=== PATIENT | female | born 1985 | race Two or more races ===

== ENCOUNTER → 2016-10-31 | Outpatient (CLI) | payer OTHER ==
[~2016-10-31] MED LIST: AMOXICILLIN875 MG PO; AZITHROMYCIN250 MG PO; KEPPRA500 M2 PO; LIDOCAINE VISCOU1 ML PO; LORTAB ELIXIR480 ML PO; PHENERGAN25 M1 PR; VOLTAREN50 MG PO; ZOFRAN PO
--- NOTE | ~2016-10-31 | CR173 ---
[facility] A Service of [facility] & [facility] RADIOLOGY TEXT RESULTS PATIENT: ZULY OSMAN LOCATION: [facility] : [birth year] UNIT #: [id number] AGE: [address]: STAN LIRA SEX: F ORDER DR: [id number] [facility] [address] [place], [place] [address] [id number] MR#: [id number] Acc #: [id number] NAME: ZLUY OSMAN : 1985 SEX: F STUDY DATE/TIME: 10/31/2016 9:02 UNIT: [facility] ROOM: STUDY DESCRIPTION: CR Knee 3 Views Rt Attending Physician: Brittney Colon Referring Physician: Brittney Colon Ordering Physician: Brittney Colon Primary Care Physician: Clair Méndez M.D. MEDICAL IMAGING REPORT This report is preliminary unless electronic signature is present EXAM Right knee, 10/31/2016. HISTORY Right frontal knee pain for 1 month. No trauma. FINDINGS 3 views of the right knee were obtained. There is no fracture or malalignment. There is no joint effusion. There is no significant spurring. IMPRESSION Normal right knee. Dictated by... Piter Fuentes Jr., M.D. THIS IS AN ELECTRONICALLY VERIFIED REPORT Piter Fuentes Jr., M.D. at 10/31/2016 2:48 PM [place]/christina TD: 10/31/2016 12:00 JOB #: [id number] MEDICAL IMAGING REPORT Page 1 of 1 COPY
== END | disposition home or self-care (01) ==
LOC: CRAD 08:50
DX: M25.561 Pain in right knee (principal)
CPT/HCPCS: 73562

== ENCOUNTER 2017-03-18 09:37 | Emergency (ER) | payer OTHER ==
[2017-03-18 10:40] LABS: BASOPHIL# 0.1 X10e3 (0-0.3); BASOPHIL% 0.7 % (0-2.5); EOSINOPHIL# 0.4 X10e3 (0-0.7); EOSINOPHIL% 3.7 % (0.0-7.0); HEMATOCRIT 41.5 % (35.0-45.0); HEMOGLOBIN 13.2 gm/dL (12.0-16.0); LYMPHOCYTE# 2.9 X10e3 (1.0-3.5); LYMPHOCYTE% 26.5 % (17.0-45.0); MEAN CELL VOLUME 72.2 FL (83-96); MEAN CORPUSCULAR HEMOGLOBIN 22.9 PG (28-34); MEAN CORPUSCULAR HGB CONC 31.8 g/dL (30-36); MEAN PLATELET VOLUME 8.9 FL (6.5-11.5); MONOCYTE# 0.4 X10e3 (0-1.0); MONOCYTE% 4.1 % (3.0-12.0); NEUTROPHIL# 7.1 X10e3 (1.5-7.1); PLATELET COUNT 214 X10e3 (140-420); RED BLOOD COUNT 5.75 X10e (3.90-5.30); RED CELL DISTRIBUTION WIDTH 14.6 % (11.0-15.5); WHITE BLOOD COUNT 10.9 X10e3 (4.0-10.5)
[2017-03-18 10:44] LABS: DIFF IND NO
[2017-03-18 11:03] LABS: URINE SOURCE CLEAN CATCH
[2017-03-18 11:06] LABS: BUN/CREATININE RATIO 12.85; CALCIUM SERUM 9.1 mg/dL (8.4-10.2); CREATININE SERUM 0.7 mg/dL (0.6-1.4); GLOM FILT RATE Estimated 115.5 mL/min (>60)
[2017-03-18 11:08] LABS: URINE APPEARANCE CLEAR; URINE BILIRUBIN NEG (NEG); URINE BLOOD NEG (NEG); URINE COLOR YELLOW; URINE GLUCOSE NEG (NEG); URINE KETONE TRACE (NEG); URINE LEUKOCYTE ESTERASE NEG (NEG); URINE NITRATE NEG (NEG); URINE PH 5.5 (5-8); URINE PROTEIN 1+ (NEG); URINE SPECIFIC GRAVITY 1.018 (1.003-1.035); URINE UROBILINOGEN 0.2 MG/DL (NEG)
[2017-03-18 11:10] LABS: URINE BACTERIA AUWI NEG (NEGATIVE); URINE SQUAMOUS EPITHELIAL CELL NONE SEEN /[HPF]; UWBCS1 AUWI 0-2 (0-5)
[2017-03-18 11:17] LABS: CULTURE INDICATED? NO
== END 2017-03-18 12:23 | disposition home or self-care (01) ==
LOC: CED 09:37
PROVIDERS: Emergency Medicine
DX: G40.909 Epilepsy, unspecified, not intractable, without status epilepticus (principal)
CPT/HCPCS: 36415; 80048; 81003; 82947; 84703; 85025; 96365; 99284; J1953

== ENCOUNTER 2017-04-04 23:54 | Inpatient (IN) | payer OTHER ==
[~2017-04-04] VITALS: Ht 157.5 cm; Wt 98.0 kg
--- NOTE | ~2017-04-04 | CO ---
Unit #: [id number] #: [id number] Patient: ZULY OSMAN [id number] [facility] [address] [place], [place] [address] [id number] Willis MR#: [id number] NAME: ZULY OSMAN [facility]: [facility] Age: 32 Sex: F Admission Date: 04/05/2017 : 1985 Attending Physician: Clair Méndez M.D. Primary Care Physician: Clair Méndez M.D. Consultation Date: 04/05/2017 CONSULTATION REPORT REASON FOR CONSULTATION 1. Possible hypoxic-anoxic encephalopathy. 2. History of seizure disorder. PATIENT IDENTIFICATION This is a 32-year-old, Czech female, who is evaluated from ICU 21 at [facility]. SOURCE OF INFORMATION Some medical records and my discussions with ER MD. PROBLEM LIST Looking at her history and medication, 1. History of seizure disorder. She sees Dr. Kwong. 2. Obstructive sleep apnea. 3. Obesity. 4. Allergies. 5. Now, respiratory failure. 6. Also, she has pulseless electrical activity. 7. Detailed records at present, not available. HISTORY OF PRESENT ILLNESS This is a 32-year-old female, who apparently has history of seizure disorder. I saw some CT scan results and other tests that have been ordered by Dr. Kwong since 2014. It looks like she sees Dr. Kwong and is on Keppra and looks like 1000 mg twice daily and one concern is that she was going for holistic approach and not taking the medication, but I did see her bottle and it was filled with levetiracetam 1000 mg twice daily on the forth and has eight tablets remaining, so which will be appropriate, so really we do not know. Her is not here. Her children are young, but apparently she went to sleep fine, though, she has been having some headaches lately. She uses a CPAP, so she put the machine on and her children then noticed that she was shaking and she was not waking up, so they called the EMS. EMS arrived at the scene and she was in pulseless electrical activity. Please refer to all workup done after that. She was brought in around 11:54 p.m. then, she arrested again. She was already intubated. She had CPR done again and that has been the situation. Nobody witnessed the seizure like activity. Her temperature was up. Her labs did not show anything else otherwise, now she is running a temperature of 102 plus. Her heart rate was anywhere from 92 to 152. Blood pressure initially was 160/112 and then 180/114, now she is 120/81. She has no sedation, but she is not purposeful, she is more shaking. It is not rhythmic seizure-like activity. There are no eye movement. Her Unit #: [id number] #: [id number] Patient: ZULY OSMAN pupils are about 2 mm, essentially nonreactive. No corneals. No doll eyes and she has no sedation. Her labs showed decreased pH of 7.18. Random glucose was 318. AST was 170 and ALT was 128. Alcohol level 5 ?. White count was 25.4, RBC count was 5.44, hemoglobin and hematocrit of 12.2 and 40.7, and platelet count was 260. Urine drug screen was negative. Urinalysis showed nothing major. Head CT showed lack of wells and white, which could be motion, but concerning for hypoxic and anoxic injury. Her seizure frequency apparently has increased lately. Previously reportedly, she would have 1 to 2 seizure, but now much more, but again, this is information from her adolescent children and I do not have anybody else to inform me. All the information was gathered via her sister and brother and we do not have any medical records available and obviously I am not sure if we can gather anything from Dr. Kwong. PAST MEDICAL HISTORY As discussed above. PAST SURGICAL HISTORY Apparently, a . ALLERGIES None known to us. HOME MEDICATIONS 1. Tizanidine. 2. Keppra 500 mg twice daily. 3. Claritin/generic. FAMILY HISTORY No seizure reported. SOCIAL HISTORY Apparently, she is . She lives with her and three children I believe. There is nothing suggesting tobacco, alcohol, or drug use known to us. REVIEW OF SYSTEMS Review of systems could not be obtained because of her present coma state. PHYSICAL EXAMINATION VITAL SIGNS: Temperature 98.3, pulse 98, respirations are 24, blood pressure is 120/81, and O2 saturations 100%. Weight of 214 pounds. BMI was 39. NEUROLOGIC: The patient at present is in coma. She is not sedated. She is not following commands. Her Lucien coma Scale at present, I gave her a score of 3/15. Intubated. She has some spontaneous shaking-type activity, rigors like activity, which could be secondary to her seizures. Cranial nerve examination demonstrate no corneals. No doll eyes. Pupils, about 2 mm, nonreactive. No dysconjugate seen. I did not see any ptosis. I did not see any nystagmus. I did not see any rolling eye movements. I did not see any facial asymmetry. No response to facial stimuli. Hearing is questionable. Tongue was midline. I could not visualize her oropharynx or uvula. No head turning was seen otherwise. Unit #: [id number] #: [id number] Patient: ZULY OSMAN Motor examination demonstrated normal bulk and tone. She is having some shivering and rigor type of activity. Her temperature is 102+ plus. No purposeful movement, otherwise that I could elicit. Sensory examination, no responses of any kind. I could not get any reflexes. Toes are mute. Gait and coordination could not be evaluated. DIAGNOSTIC STUDIES Labs and imaging are reviewed and as discussed in the history of present illness. IMPRESSION This is a 32-year-old female, who has history of seizures, but apparently she was in pulseless electrical activity, whether it was a prolonged seizure and she ended up becoming hypoxic and anoxic injury. Whether this was a cardiac event that caused this, we do not know. She is acting like hypoxic ischemic encephalopathy. We will give her full support. Because of her history of seizure disorder, I will continue Bita Lang and I am going to do Cerebyx also. Supportive care. Discussed with the family. Airway breathing and circulation and full support looking at her liver function tests and others. I am concerned that damage may be there, but her being young and otherwise not in bad physical health, we may have some hope and I will continue that and we will see how things go. Continue with three antiepileptics and will use Versed if any seizure-like activity and go from there. I talked to the family. Her is not here and I will follow her while she is here and I am concerned about very poor prognostic picture, but we will continue everything as at present. Dictated by... Kem Velazquez M.D. MELANY/caren TD: 04/06/2017 05:56 JOB #: [id number] CONSULTATION REPORT Page 1 of 1 X Kem Velazquez MD CONSULTATION REPORT
--- NOTE | ~2017-04-04 | CR72 ---
[facility] A Service of [facility] & [facility] RADIOLOGY TEXT RESULTS PATIENT: ZULY OSMAN LOCATION: [address] : [birth year] UNIT #: [id number] AGE: [address]: Harleen Ramos MD SEX: F ORDER DR: [id number] [facility] [address] [place], [place] [address] [id number] I MR#: [id number] Acc #: [id number] NAME: ZULY OSMAN : 1985 SEX: F STUDY DATE/TIME: 04/05/2017 1:27 UNIT: [facility] ROOM: [facility] STUDY DESCRIPTION: CR Chest Single View Portable Attending Physician: Harleen Ramos M.D. Ordering Physician: Jamel Emmanule M.D. Primary Care Physician: Clair Méndez M.D. MEDICAL IMAGING REPORT This report is preliminary unless electronic signature is present EXAM Portable chest. INDICATIONS Central line placement. Shortness of air today. PROCEDURE Frontal view chest. COMPARISON 09/02/2013 FINDINGS ET tube is 1.5 cm above the yanique. There is a right IJ catheter in the proximal SVC. No pneumothorax or dense consolidation. IMPRESSION 1. ET tube 1.5 cm above the yanique. 2. Right IJ approach catheter in the proximal SVC. No pneumothorax. Dictated by... Iker Robles M.D. THIS IS AN ELECTRONICALLY VERIFIED REPORT Iker Robles M.D. at 04/05/2017 10:03 PM AARON/neha TD: 04/05/2017 19:47 JOB #: [id number] MEDICAL IMAGING REPORT Page 1 of 1 COPY
--- NOTE | ~2017-04-04 | EE ---
Unit #: [id number] #: [id number] Patient: ZULY OSMAN [id number] [address] [address] [id number] I MR#: [id number] NAME: ZULY OSMAN : 1985 SEX: F STUDY DATE/TIME: 04/06/2017 UNIT: [facility] ROOM: [facility] STUDY DESCRIPTION: EEG Attending Physician: Clair Méndez M.D. Referring Physician: Kem Velazquez M.D. Primary Care Physician: Clair Méndez M.D. NEURODIAGNOSTICS REPORT EXAM EEG REASON FOR THE STUDY History of seizure, decreased level of consciousness and unresponsiveness. 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 EEG DESCRIPTION This is an inpatient, portable, digitally recorded multi-montage adult EEG with leads placed according to the International 10-20 System. Hyperventilation and photic stimulation was not done. This EEG shows very decreased amplitude and very slow EEG with some breathing artifact and irregular burst suppression type pattern also. I believe it may be a combination of both. I checked the patient when the EEG was being done and I discussed it with the staff. The breathing is at 17-22 per minute and similarly there may be burst of activity every 3 to sometimes 5-6 seconds. No reactivity was seen but the most important thing is there is nothing suggestive of seizure, nothing suggesting status. No interictal discharges. Decreased amplitude slow, nonreactive EEG. IMPRESSION This is an abnormal EEG which is essentially in coma state. No reactivity was seen but nothing suggesting seizure or status. Burst suppression versus breathing artifact and both of them would suggest, with otherwise not much activity, a poor prognostic picture. Clinical correlation is recommended. Dictated by... Marge Leal/jay TD: 04/07/2017 12:33 JOB #: [id number] Unit #: [id number] #: [id number] Patient: ZULY OSMAN NEURODIAGNOSTICS REPORT Page 1 of 1 X Kem Velazquez MD NEURODIAGNOSTICS REPORT
--- NOTE | ~2017-04-04 | CR72 ---
[facility] A Service of [facility] & [facility] RADIOLOGY TEXT RESULTS PATIENT: ZULY OSMAN LOCATION: [address] : [birth year] UNIT #: [id number] AGE: [address]: Clair Méndez MD SEX: F ORDER DR: [id number] [facility] [address] [place], [place] [address] [id number] I MR#: [id number] Acc #: [id number] NAME: ZULY OSMAN : 1985 SEX: F STUDY DATE/TIME: 04/06/2017 5:16 UNIT: [facility] ROOM: [facility] STUDY DESCRIPTION: CR Chest Single View Portable Attending Physician: Clair Méndez M.D. Ordering Physician: Lynn Richmond M.D. Primary Care Physician: Clair Méndez M.D. MEDICAL IMAGING REPORT This report is preliminary unless electronic signature is present EXAM Portable chest INDICATIONS Cardiac arrest followup. Respiratory failure today. PROCEDURE Frontal view chest COMPARISON 04/05/2017 FINDINGS ET tube stable; heart size unchanged. No new dense consolidation, visible pleural fluid or pneumothorax. IMPRESSION Stable Dictated by... Iker Robles M.D. THIS IS AN ELECTRONICALLY VERIFIED REPORT Iker Robles M.D. at 04/07/2017 10:04 PM EED/to TD: 04/06/2017 14:26 JOB #: [id number] MEDICAL IMAGING REPORT Page 1 of 1 COPY
--- NOTE | ~2017-04-04 | FU ---
[facility] Nutrition Therapy DATE: 04/08/17 Patient: ZULY OSMAN Physician: MORCAR Address: [address] [place] [address] Room/Bed: [address], Zip: [place] [address] Admit Date: 04/05/17 Date of : [birth year] Height: 5 2 Weight: 216 98 NUTRITION MONITORING/FOLLOW-UP: Reason: Nutrition follow-up Admitting dx: 32 y/o female admitted with cardiac arrest, ?seizure Anthropometrics: Ht: 62", admission wt: 97.5 kg, current wt: 98 kg, BMI: 39 (stage II obese; based on admission wt) Labs: Na 165, K+ 3.2, glucose 141, AST 58, ALT 62 Meds: Levophed?, keppra, PPI, D5W @ 100 ml/hr, no sedation GI: BM 04/05 Skin: no significant issues, generalized edema trunk Estimated Nutrition Needs: 8895-1309 kcals/day (15-20 kcals/kg; based on admission wt) 78-98 g protein/day (0.8-1.0 g/kg; based on admission wt) Fluids per MD Assessment: Chart reviewed, events noted. Patient remains intubated on no sedation. CT/MRI show anoxic brain injury. Patient has no reflexes and no pain response. Poor prognosis noted, FIDELINA following. Pt is pending further brain testing. Family to decide if she will be made comfort care. No plan to start enteral nutrition at this time. See nutrition dx, goals and recs below. Will continue to follow as appropriate. Dx: Inadequate energy intake r/t nutrition not yet initiated, vent dependence AEB NPO, need for EN - ACTIVE Intervention: EN recs as stated below Monitoring, Evaluation and Goals: 1. EN consistent with estimated nutritional needs (if appropriate) - NOT MET (EN not initiated, family deciding plan of care) 2. Labs WNL - IN PROGRESS/NOT MET (see above labs) No new goals Monitor: per protocol, criteria to determine if above goals met [facility] Nutrition Therapy DATE: 04/08/17 Patient: ZULY OSMAN Physician: MORCAR Address: [address] [place] [address] Room/Bed: [address], Zip: [place] [address] Admit Date: 04/05/17 Date of : [birth year] Height: 5 2 Weight: 216 98 Recommendations: 1. If consistent with goals of care, enteral nutrition recommendations are as follows: Jevity 1.5 goal rate 50 ml/hr to meet 100% of estimated nutritional needs Add 300 ml free water flushes q 4 hours, or per MD noting hypernatremia 2. Please consult RD with any further nutritional needs. Status: Mild nutrition risk Respectfully, Karlene Galindo RD, LD [facility] cc: client file
--- NOTE | ~2017-04-04 | HP ---
Unit #: [id number] #: [id number] Patient: ZULY OSMAN [id number] [facility]. [place], [place] [address] [id number] I MR#: [id number] NAME: ZULY OSMAN ROOM: [facility] Age: 32 Sex: F Admission Date: 04/05/2017 : 1985 Attending Physician: Harleen Ramos M.D. Primary Care Physician: Clair Méndez M.D. HISTORY AND PHYSICAL HISTORY OF PRESENT ILLNESS The patient is a 32-year-old female with a history of seizure disorder with questionable compliance with medications, apparently found down by her son with a decreased level of consciousness. EMS was summoned. When they arrived, she was in cardiac arrest with PEA. She was given epinephrine x2, pulse returned. She was brought to the emergency room where she again went into PEA. CPR was performed. She was intubated, given multiple rounds of anti-epileptic medicines and admitted to the ICU. She has already been seen by neurology. Her CT scan shows evidence of hypoxic brain injury with loss of the long-white matter transition zone. Her family is at the bedside during the history and physical examination. They are demanding she be transferred to [facility] for further care. She has already been started on multiple anti-epileptic medicines as well as Zosyn because of a fever and elevated white count. We have no past medical records on her whatsoever here at the hospital. She apparently usually sees Dr. Méndez in the office who I am covering for. In any case, the patient is admitted for further treatment and will be transferred today if we can find out receiving physician. FIDELINA has already been notified. Dr. Velazquez gave her a [place] Coma Scale of 3T. Her temperature has been climbing. She is on the cooling blanket and again she is on Zosyn and Tylenol p.r.n. ALLERGIES She has no known drug allergies. MEDICATIONS Her medications prior to admission: 1. Claritin 10 mg daily. 2. Astelin nasal spray p.r.n. 3. Keppra 1000 mg b.i.d. 4. Zanaflex p.r.n. PAST MEDICAL HISTORY Her only medical history is that of seizure disorder. PAST SURGICAL HISTORY Her only surgical history is . SOCIAL HISTORY There is (1) on here whether she uses tobacco or not but states that she does not use alcohol. Again, she has never been admitted to this facility before but apparently they live in this [facility] and obviously EMS was concerned about her Unit #: [id number] #: [id number] Patient: ZULY OSMAN and brought her immediately to [place] as it is the closest hospital. PHYSICAL EXAM VITAL SIGNS: Currently, her temperature is 102.5 degrees, pulse 98, respirations 24, blood pressure 120/61. O2 sats 100% on ventilator. HEENT: Unremarkable except for unresponsive pupils. NECK: Supple without JVD, bruits, adenopathy or thyromegaly. CHEST: Clear to auscultation. HEART: Regular rate and rhythm without any murmurs, rubs or gallops. ABDOMEN: Soft, large. It was nondistended, nontender with positive bowel sounds and no hepatosplenomegaly. EXTREMITIES: No clubbing, cyanosis or edema. AND RECTAL: Deferred. NEUROLOGIC EXAM: Again, her pupils are fixed but not particularly dilated. There is no response to light. She has no response to stimulation, even pain. She does have some involuntary movement of her right upper extremity but none noted in the left or the lower extremities. DIAGNOSTIC STUDIES LABORATORY: Lab values - first set of cardiac enzymes were normal. Second set shows an MB of 17.5% and a troponin of 0.12 but, of course, this is after CPR. Her PT/INR was 1.0, PTT was 52.3. CMP is normal except for a CO2 of 10, random blood sugar of 318 and AST of 170, ALT of 128. Tylenol is less than 10. Salicylate less than 4. Alcohol 5. Urinalysis - 1+ protein, 2-5 hyaline casts but otherwise normal. Urine drug screen negative. Last ABG showed pH of 7.253, a PCO2 of 42.4 and a pAO2 of 85.8. That is on an AC rate of 18, patient rate of 22, tidal volume of 500, 5 of PEEP, 60% FIO2. Her CBC shows a white count of 25.5 with a low MCV and MCH at 80.1 and 22.3. RDW is normal. Platelets are normal at 260,000. On the smear, she has teardrop cells present and three smudge cells. IMPRESSION 1. Seizure disorder. 2. Status post cardiac arrest secondary to PEA. 3. Anoxic brain injury. 4. Hyperthermia. 5. Leukocytosis. PLAN As mentioned above, she has been seen by neurology. Loin Trimmer has been consulted but hasn't arrived yet. She has been on ventilator support. FIDELINA has been notified. She has been started on Keppra, Vimpat and Dilantin as well as Tylenol and Zosyn. [facility] and proceed accordingly. Unit #: [id number] #: [id number] Patient: ZULY OSMAN Dictated by Faisal Villarreal M.D. ANDREA/jay TD: 04/05/2017 13:29 JOB #: [id number] HISTORY AND PHYSICAL Page 1 of 1 X Faisal Villarreal MD X HISTORY AND PHYSICAL
--- NOTE | ~2017-04-04 | EKG ---
PATIENT: ZULY OSMAN UNIT #: [id number] Ventricular Rate: 119 BPM Atrial Rate: 119 BPM P-R Interval: 88 ms QRS Duration: 110 ms Q-T Interval: 316 ms QTC Calculation(Bezet): 444 ms P [place]: 256 degrees Calculated R [place]: 82 degrees Calculated T [place]: 30 degrees Diagnosis Line: Sinus tachycardia Diagnosis Line: Nonspecific ST abnormality Diagnosis Line: Abnormal ECG Diagnosis Line: When compared with ECG of 13-JAN-2013 01:30, Diagnosis Line: ST now depressed in Anterior leads Diagnosis Line: Confirmed by MILVIA TOUSSAINT MD ([id number]) on Diagnosis Line: 04/06/2017 4:57:44 PM INTERPRETING MD: MIRIAM
--- NOTE | ~2017-04-04 | CT52 ---
[facility] A Service of [facility] RADIOLOGY TEXT RESULTS PATIENT: ZULY OSMAN LOCATION: [facility] : [birth year] UNIT #: [id number] AGE: [address]: Harleen Ramos MD SEX: F ORDER DR: [id number] [facility] [address] [place], [place] [address] [id number] I MR#: [id number] Acc #: [id number] NAME: ZULY OSMAN : 1985 SEX: F STUDY DATE/TIME: 04/05/2017 1:51 UNIT: [facility] ROOM: [facility] STUDY DESCRIPTION: CT Cervical Spine Wo Cont Attending Physician: Harleen Ramos M.D. Ordering Physician: Jamel Emmanuel M.D. Primary Care Physician: Clair Méndez M.D. MEDICAL IMAGING REPORT This report is preliminary unless electronic signature is present EXAM CT cervical spine without contrast. INDICATIONS Unresponsive patient after cardiac arrest today. PROCEDURE Unenhanced CT of the cervical spine. This CT exam was performed with one or more of the following radiation dose reduction techniques: automatic exposure control, adjustment of mA and/or kV according to patient size, and iterative reconstruction. COMPARISON None. FINDINGS Cervical bodies have normal height and alignment. Craniocervical junction and the dens are intact. No fracture. Patient is intubated. There is patchy opacity in the posterior upper lobes. No critical central canal narrowing. IMPRESSION 1. No acute findings in the cervical spine. 2. Patchy opacities in the posterior upper lobes that could represent infiltrate or atelectasis. Dictated by... Iker Robles M.D. THIS IS AN ELECTRONICALLY VERIFIED REPORT Iker Robles M.D. at 04/05/2017 10:04 PM [facility] A Service of [facility] & [facility] RADIOLOGY TEXT RESULTS PATIENT: ZULY OSMAN LOCATION: [facility] : [birth year] UNIT #: [id number] AGE: [address]: Harleen Ramos MD SEX: F ORDER DR: Taz TD: 04/05/2017 19:51 JOB #: [id number] MEDICAL IMAGING REPORT Page 1 of 1 COPY
--- NOTE | ~2017-04-04 | NM10 ---
[facility] A Service of [facility] RADIOLOGY TEXT RESULTS PATIENT: ZULY OSMAN [facility] [birth year] UNIT #: [id number] AGE: [address]: Clair Méndez MD SEX: F ORDER DR: [id number] [facility] [address] [place], [place] [address] [id number] I MR#: [id number] Acc #: [id number] NAME: ZULY OSMAN : 1985 SEX: F STUDY DATE/TIME: 04/08/2017 12:49 UNIT: [facility] ROOM: [facility] STUDY DESCRIPTION: [facility] Attending Physician: Clair Méndez M.D. Ordering Physician: Kem Velazquez M.D. Primary Care Physician: Clair Méndez M.D. MEDICAL IMAGING REPORT This report is preliminary unless electronic signature is present EXAM Brain flow study 04/08/2017 HISTORY 32-year-old female status post cardiac arrest, 04/05/2017, now unresponsible and intubated with evidence of anoxic brain injury on comparison brain MRI. RADIOPHARMACEUTICAL 30 mCi technetium DTPA given IV. COMPARISON CT head 04/05/2017 and brain MRI 04/07/2017. FINDINGS Flow images over the brain demonstrate persistent flow in the common carotid arteries, internal carotid arteries, and onward into the anterior and middle cerebral arteries with drainage into the superior sagittal sinus. IMPRESSION Normal brain flow study. Persistent intracranial perfusion identified. Dictated by... Brian Dennis M.D. THIS IS AN ELECTRONICALLY VERIFIED REPORT Brian Dennis M.D. at 04/09/2017 3:13 PM LINN/rodo TD: 04/09/2017 06:12 JOB #: [id number] [facility] A Service [facility] RADIOLOGY TEXT RESULTS PATIENT: ZULY OSMAN [facility] : [birth year] UNIT #: [id number] AGE: [address]: Clair Méndez MD SEX: F ORDER DR: MEDICAL IMAGING REPORT Page 1 of 1 COPY
--- NOTE | ~2017-04-04 | CT71 ---
[facility] A Service of [facility] RADIOLOGY TEXT RESULTS PATIENT: ZULY OSMAN LOCATION: [facility] : [birth year] UNIT #: [id number] AGE: [address]: Harleen Ramos MD SEX: F ORDER DR: [id number] [facility] [address] [facility] [place] [facility] [place], [place] [address] [id number] I MR#: [id number] Acc #: [id number] NAME: ZULY OSMAN : 1985 SEX: F STUDY DATE/TIME: 04/05/2017 1:48 UNIT: [facility] ROOM: [facility] STUDY DESCRIPTION: CT Head Wo Contrast Attending Physician: Harleen Ramos M.D. Ordering Physician: Jamel Emmanuel M.D. Primary Care Physician: Clair Méndez M.D. MEDICAL IMAGING REPORT This report is preliminary unless electronic signature is present EXAM CT head without contrast. INDICATIONS Cardiac arrest, unresponsive patient today. PROCEDURE Unenhanced CT of the head. This CT exam was performed with one or more of the following radiation dose reduction techniques: automatic exposure control, adjustment of mA and/or kV according to patient size, and iterative reconstruction. COMPARISON 05/10/2015 FINDINGS Apparent loss of long-white matter differentiation. Sulcal effacement. No midline shift, hemorrhage or extraaxial collection. No depressed calvarial fracture. IMPRESSION Loss of long-white differentiation and sulcal effacement suspicious for generalized brain edema. Given history of cardiac arrest. Suspicion for global anoxic injury. Correlate with history. Dictated by... Iker Robles M.D. THIS IS AN ELECTRONICALLY VERIFIED REPORT Iker Robles M.D. at 04/05/2017 10:04 PM AARON/neha [facility] A Service of [facility] RADIOLOGY TEXT RESULTS PATIENT: ZULY OSMAN LOCATION: [facility] : [birth year] UNIT #: [id number] AGE: [address]: Harleen Ramos MD SEX: F ORDER DR: TD: 04/05/2017 19:49 JOB #: [id number] MEDICAL IMAGING REPORT Page 1 of 1 COPY
--- NOTE | ~2017-04-04 | CO ---
Unit #: [id number] #: [id number] Patient: ZULY OSMAN [id number] [address] [address] [id number] I MR#: [id number] NAME: ZULY OSMAN ROOM: [facility] Age: 32 Sex: F Admission Date: 04/05/2017 : 1985 Attending Physician: Clair Méndez M.D. Primary Care Physician: Clair Méndez M.D. Consultation Date: 04/05/2017 CONSULTATION REPORT REASON FOR CONSULT ICU management. HISTORY OF PRESENT ILLNESS This is a 32-year-old female from [facility] with past medical history significant for seizure disorder who was found down by her son with decreased level of consciousness. There is concern that patient wasn't taking her medication per advice from some member in her community. When EMS arrived, patient was found to be in cardiac arrest with pulseless electrical arrhythmia. Her CT head in the emergency room showed evidence of acute hypoxic brain injury. PAST MEDICAL HISTORY 1. Epilepsy. PAST SURGICAL HISTORY . ALLERGY No known drug allergy. HOME MEDICATION 1. Zanaflex. 2. Keppra. 3. Claritin. SOCIAL HISTORY Patient is with 3 kids. She smokes cigarette. No history of alcohol or drug abuse. PHYSICAL EXAM GENERAL: The patient on the vent. VITAL SIGNS: Blood pressure is 141/62, heart rate 110. HEENT: Atraumatic, normocephalic. Pupils are dilated and fixed. NECK: Supple. No JVD, no lymphadenopathy. CHEST: Fine rhonchi at the right lower base. HEART: S1, S2. No murmur or gallops or rubs. ABDOMEN: Soft, nontender. Bowel sound is positive. No hepatosplenomegaly. EXTREMITY: No edema or cyanosis. SKIN: No rashes. 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 She is not following any commands. She is having weak cough reflexes but she is not withdrawing to Unit #: [id number] #: [id number] Patient: ZULY OSMAN painful stimuli. LABS AND OTHER TESTS pH 7.25/42/85, creatinine 1.1, sodium 143, white blood count is 25.5, hemoglobin 12.2. ASSESSMENT 1. Acute hypoxic respiratory failure. 2. PEA cardiac arrest. 3. Status epilepticus. 4. Anoxic brain injury. 5. Acute kidney injury. 6. Aspiration pneumonia. 7. Likely obstructive sleep apnea. 8. Leukocytosis. 9. Morbid obesity. PLAN 1. Patient is critical. Will continue vent support at this point. 2. IV Zosyn, bronchodilator. 3. IV fluid and monitor urine output and creatinine closely. 4. Anti-epileptics per neurology. 5. Patient is not a candidate for hypothermia protocol given her severe anoxic brain injury on the CT head. 6. I had a lengthy discussion with the patient's and brother through [employer] regarding her prognosis and I suggested to give the patient 72 hours and reassess. I advised against trach and feeding tube if she has no meaningful recovery. Both brother and expressed understanding and had no questions at this point. Critical care time spent on this patient was 35 minutes. Dictated by... Marge Sy TD: 04/06/2017 09:56 JOB #: [id number] CONSULTATION REPORT Page 1 of 1 X JUAN KAMARA MD X CONSULTATION REPORT
--- NOTE | ~2017-04-04 | MR18 ---
[facility] A Service of [facility] & [facility] RADIOLOGY TEXT RESULTS PATIENT: ZULY OSMAN [facility] [birth year] UNIT #: [id number] AGE: [address]: Clair Méndez MD SEX: F ORDER DR: [id number] [facility] [address] [place], [place] [address] [id number] I MR#: [id number] Acc #: [id number] NAME: ZULY OSMAN : 1985 SEX: F STUDY DATE/TIME: 04/07/2017 12:35 UNIT: [facility] ROOM: [facility] STUDY DESCRIPTION: MR Brain Wo Contrast Attending Physician: Clair Méndez M.D. Ordering Physician: Clair Méndez M.D. Primary Care Physician: Clair Méndez M.D. MRI CENTER REPORT This report is preliminary unless electronic signature is present. EXAM Brain MRI without HISTORY Anoxic injury after cardiac arrest, unresponsive and intubated. Admitted with cardiac arrest 04/05/2017. Preliminary wet reading by Dr. Vick 16:29 11/18. COMMENTS MRI of the brain was performed without contrast using routine 1.5T imaging technique. The comparison study is from 07/12/2015. There is extensive abnormal diffusion restriction involving the cortex throughout the bilateral cerebral hemispheres and bilateral cerebellar hemispheres. There is diffuse cerebral swelling as well. There is also signal abnormality in the bilateral basal ganglia occluding the caudate, nuclei and putamina particularly. There is tonsillar herniation and mass effect at the cervicomedullary junction, new from prior. There is sulcal effacement, new from prior. The findings are most consistent with diffuse laminar cortical necrosis in the setting of a global hypoxic ischemic insult. There is nothing to suggest intracranial hemorrhage at this time. The major arterial intracranial flow voids are still maintained. There is fluid or inflammatory change in the mastoid air cells bilaterally. There is considerable opacification of paranasal sinuses with air-fluid level in the left maxillary sinus right sphenoid sinus left sphenoid sinus and several ethmoid air cells. There is bilateral medial uncal deviation. If not herniation with effacement of the suprasellar cistern. There is signal abnormality particularly in the medial hippocampi on T2-weighted imaging consistent with insult, presumably due to the global hypoxic ischemic insult. IMPRESSION 1. Markedly abnormal study consistent with extensive global hypoxic STS. [facility] A Service of [facility] & [facility] RADIOLOGY TEXT RESULTS PATIENT: ZULY OSMAN LOCATION: [facility] : [birth year] UNIT #: [id number] AGE: [address]: Clair Méndez MD SEX: F ORDER DR: ischemic insult. There is extensive bilateral laminar cortical necrosis with restricted diffusion involving the bilateral cerebral and cerebellar cortices. Additionally, there is signal abnormality in the bilateral basal ganglia. There is particularly focal abnormal signal intensity within the medial temporal lobes including the hippocampal formations bilaterally. Furthermore, there is diffuse cerebral swelling with sulcal effacement. There is tonsillar herniation downward with mass effect at the cervicomedullary junction and there is also at least medial deviation of the bilateral temporal lobes if not true uncal herniation such that the suprasellar cistern is largely effaced. At this time, the major arterial intracranial flow voids are still maintained. 2. Paranasal sinus disease with air-fluid levels. Fluid or inflammatory change mastoid air cells. Patient is intubated. STAT * RESULT Dictated by... Verena Miranda M.D. THIS IS AN ELECTRONICALLY VERIFIED REPORT Verena Miranda M.D. at 04/08/2017 2:17 PM CLARY/moisés TD: 04/08/2017 11:07 JOB #: [id number] MRI CENTER REPORT Page 1 of 1 COPY
--- NOTE | ~2017-04-04 | A ---
[facility] Nutrition Therapy DATE: 04/05/17 Patient: ZULY OSMAN Physician: ELKE Address: [address] Room/Bed: [address], Zip: [place] [address] Admit Date: 04/05/17 Date of : [birth year] Height: 5 2 Weight: 214 97.5 NUTRITIONAL ASSESSMENT: REASON: NPO in ICU, intubated Admitting dx: 32 y/o female admitted with cardiac arrest, ?anoxic brain injury PMH: No H&P currently available, unable to review physical chart at this time as it is being used Anthropometrics: Ht: 62", Wt: 97.5 kg, BMI: 39 (stage II obese) Labs: glucose 318, AST 170, ALT 128, no glucose POC available Meds: Keppra, propfol off at this time (still on OCT in case needs to be restarted) I/O & Bowel function: Last BM unknown Skin Integrity: No issues, no edema Estimated Nutrition Needs: 0069-0397 kcals/day (15-20 kcals/kg) 78-98 g protein/day (0.8-1.0 g/kg) Fluids consistent with kcal needs or per MD Assessment: Chart reviewed, events noted. No H&P or PMH in physical chart available at this time. See admitting dx as stated above. The patient is s/p cardiac arrest and ?anoxic brain injury. She is currently intubated. Sedation (propofol) off at this time. Tox screen negative. RN unsure if patient has hx of DM (note glucose is 318 mg/dL and patient is stage II obese), but is requesting EN recs with Glucerna 1.5 and goal rate with and without propofol. Since propofol is off at this time, goal rate with propofol will be an estimate, assuming propofol would be running at 20 ml/hr. The patient and family at bedside are inappropriate for interview. Family awaiting discussion with MD to determine plan of care. See RD recs below, will follow hospital course. Dx: Inadequate energy intake r/t nutrition not yet initiated AEB NPO status, possible need for EN. Intervention: EN recs as stated below Monitoring, Evaluation and Goals: 1. EN consistent with estimated nutritional needs (tolerate @ goal rate). 2. Glucose, lytes, AST, ALT WNL. [facility] Nutrition Therapy DATE: 04/05/17 Patient: ZULY OSMAN Physician: ELKE Address: [address] Room/Bed: [address], Zip: [place] [address] Admit Date: 04/05/17 Date of : [birth year] Height: 5 2 Weight: 214 97.5 Monitor: per protocol, criteria to determine if above goals met Recommendations: 1. If the patient is to remain intubated > 48 hours and enteral nutrition is consistent with goals of care, suggest placing DHT and starting feeds with Glucerna 1.5 @ 20 ml/hr, increasing rate by 10 ml q 6 hours until goal rate of 50 ml/hr is reached. Note this would be the patient's goal rate WITHOUT propofol. This nutrition regimen would provide 1200 ml, 1800 kcals, 99 g protein and 912 ml water. Once at goal rate add free water flushes per MD. If propofol is restarted, assuming estimated rate of 20 ml/hr (would provide 528 lipid kcals), goal enteral nutrition rate with Glucerna 1.5 would be 40 ml/hr. No Prostat would be needed. This nutrition regimen would provide 960 ml, 1968 kcals (including propofol kcals), 79 g protein and 730 ml water. Free water flushes per MD. Monitor triglycerides. 2. Suggest starting Accucheks and checking A1C (if appropriate). If hyperglycemia persists and A1C is elevated the patient may require and insulin regimen to promote adequate blood glucose control. RD will follow hospital course Moderate-severe nutrition risk Respectfully, Karlene Galindo, RD, LD [employer] [facility] [employer] [facility] cc: client file
[2017-04-05 00:19] LABS: ARTERIAL BLD GAS O2 SATURATION 94.1 % (90.0-100.0); ARTERIAL BLOOD GAS CARBOXY HB 0.1 %sat (0.0-9.0)
[2017-04-05 00:27] LABS: POC - CKMB 4.5 ng/mL (0.0-7.9); POC - TROPONIN <0.05 ng/mL (<=0.05)
[2017-04-05 00:36] LABS: PARTIAL THROMBOPLASTIN TIME 52.3 SECONDS (23.5-31.3); PROTHROMBIN TIME (PATIENT) 10.7 SECONDS (10.0-11.7)
[2017-04-05 00:43] LABS: ARTERIAL BLOOD GAS PCO2 67.2 mmHg (35.0-45.0); ARTERIAL DRAW? YES
[2017-04-05 00:44] LABS: ARTERIAL BLOOD GAS ART SITE RIGHT RADIAL; ARTERIAL BLOOD GAS DELIVERY VENT; ARTERIAL BLOOD GAS VENT MODE A/C
[2017-04-05 01:07] LABS: ACETAMINOPHEN <10 ug/mL; ALBUMIN SERUM 3.7 g/dL (3.5-5.0); ALCOHOL BLOOD 5 mg/dL (0); ALKALINE PHOSPHATASE 88 U/L (32-92); ALT (SGPT) 128 U/L (10-40); AST (SGOT) 170 U/L (10-42); BILIRUBIN, DIRECT 0.1 mg/dL (0.0-0.2); BILIRUBIN,TOTAL 0.1 mg/dL (0.2-2.0); BLOOD UREA NITROGEN 9 mg/dL (9-23); BUN/CREATININE RATIO 8.18; CALCIUM SERUM 9.1 mg/dL (8.4-10.2); CARBON DIOXIDE 10 mmol/L (22-31); CHLORIDE 107 mmol/L (100-111); CREATININE SERUM 1.1 mg/dL (0.6-1.4); GLOM FILT RATE Estimated 66.9 mL/min (>60); GLUCOSE FASTING 318 mg/dL (70-110); POTASSIUM 4.3 mmol/L (3.5-5.1); PROTEIN TOTAL SERUM 6.9 g/dL (6.0-8.3); SALICYLATE <4.0 mg/dL; SODIUM 143 mmol/L (135-145)
[2017-04-05 01:21] LABS: ARTERIAL BLD GAS O2 SATURATION 97.1 % (90.0-100.0); ARTERIAL BLOOD GAS CARBOXY HB 0.3 %sat (0.0-9.0); ARTERIAL BLOOD GAS HCO3 15.3 mmol/L; ARTERIAL BLOOD GAS MET HB 0.9 %sat (0.0-2.0)
[2017-04-05 01:59] LABS: URINE SOURCE CLEAN CATCH
[2017-04-05 01:59] LABS: BASOPHIL# 0.2 X10e3 (0-0.3); BASOPHIL% 0.6 % (0-2.5); EOSINOPHIL# 0.5 X10e3 (0-0.7); EOSINOPHIL% 2.1 % (0.0-7.0); LYMPHOCYTE# 14.2 X10e3 (1.0-3.5); LYMPHOCYTE% 55.7 % (17.0-45.0); MEAN CELL VOLUME 80.1 FL (83-96); MEAN CORPUSCULAR HEMOGLOBIN 22.3 PG (28-34); MEAN PLATELET VOLUME 10.2 FL (6.5-11.5); MONOCYTE# 1.4 X10e3 (0-1.0); MONOCYTE% 5.4 % (3.0-12.0); NEUTROPHIL# 9.2 X10e3 (1.5-7.1); NEUTROPHIL% 36.2 % (40-75); PLATELET COUNT 260 X10e3 (140-420); RED BLOOD COUNT 5.44 X10e (3.90-5.30); RED CELL DISTRIBUTION WIDTH 15.3 % (11.0-15.5); WHITE BLOOD COUNT 25.5 X10e3 (4.0-10.5)
[2017-04-05 02:00] LABS: HEMATOCRIT 40.7 % (35.0-45.0)
[2017-04-05 02:01] LABS: MEAN CORPUSCULAR HGB CONC 30.1 g/dL (30-36)
[2017-04-05 02:02] LABS: URINE APPEARANCE CLEAR; URINE BILIRUBIN NEG (NEG); URINE BLOOD NEG (NEG); URINE COLOR YELLOW; URINE GLUCOSE NEG (NEG); URINE KETONE NEG (NEG); URINE LEUKOCYTE ESTERASE NEG (NEG); URINE NITRATE NEG (NEG); URINE PH 6.5 (5-8); URINE PROTEIN 1+ (NEG); URINE SPECIFIC GRAVITY 1.018 (1.003-1.035); URINE UROBILINOGEN 0.2 MG/DL (NEG)
[2017-04-05 02:02] LABS: DIFF IND YES; HEMOGLOBIN 12.2 gm/dL (12.0-16.0)
[2017-04-05 02:04] LABS: URINE BACTERIA AUWI NEG (NEGATIVE); URINE SQUAMOUS EPITHELIAL CELL OCC /[HPF]
[2017-04-05 02:05] LABS: CULTURE INDICATED? NO
[2017-04-05 02:08] LABS: ANISOCYTOSIS SL; PLATELET ESTIMATE NORMAL (NORMAL); POIKILOCYTOSIS SL; SMUDGE CELLS 3 /100; TEAR DROP CELLS PRESENT
[2017-04-05 02:12] LABS: AMPHETAMINE NEG (NEG); BARBITURATES NEG (NEG); BENZODIAZEPINES NEG (NEG); COCAINE NEG (NEG); MARIJUANA NEG (NEG); OPIATES NEG (NEG); TRICYCLIC ANTIDEPRESSANTS NEG (NEG); U METHADONE NEG (NEG)
[2017-04-05 02:16] LABS: ARTERIAL BLOOD GAS ALLEN TEST N; ARTERIAL BLOOD GAS ART SITE RIGHT RADIAL; ARTERIAL DRAW? YES
[2017-04-05 02:17] LABS: ARTERIAL BLOOD GAS DELIVERY VENT; ARTERIAL BLOOD GAS VENT MODE A/C
[2017-04-05 02:23] LABS: POC - CKMB 17.5 ng/mL (0.0-7.9); POC - TROPONIN 0.12 ng/mL (<=0.05)
[2017-04-05 03:50] LABS: ARTERIAL BLD GAS O2 SATURATION 93.5 % (90.0-100.0); ARTERIAL BLOOD GAS CARBOXY HB 0.5 %sat (0.0-9.0); ARTERIAL BLOOD GAS HCO3 18.7 mmol/L; ARTERIAL BLOOD GAS MET HB 0.7 %sat (0.0-2.0); ARTERIAL BLOOD GAS PCO2 42.4 mmHg (35.0-45.0); ARTERIAL BLOOD GAS PO2 85.8 mmHg (80.0-100); ARTERIAL BLOOD GAS pH 7.253 (7.350-7.450)
[2017-04-05 03:51] LABS: ARTERIAL BLOOD GAS ALLEN TEST NORMAL; ARTERIAL BLOOD GAS ART SITE RIGHT RADIAL; ARTERIAL BLOOD GAS DELIVERY VENT; ARTERIAL BLOOD GAS VENT MODE AC; ARTERIAL DRAW? YES
[2017-04-06 04:03] LABS: ARTERIAL BLD GAS O2 SATURATION 98.7 % (90.0-100.0); ARTERIAL BLOOD GAS CARBOXY HB 0.4 %sat (0.0-9.0); ARTERIAL BLOOD GAS HCO3 19.5 mmol/L; ARTERIAL BLOOD GAS MET HB 0.7 %sat (0.0-2.0); ARTERIAL BLOOD GAS PCO2 33.5 mmHg (35.0-45.0); ARTERIAL BLOOD GAS pH 7.374 (7.350-7.450)
[2017-04-06 04:07] LABS: ARTERIAL BLOOD GAS ALLEN TEST NORMAL; ARTERIAL DRAW? YES
[2017-04-06 04:08] LABS: ARTERIAL BLOOD GAS ART SITE LEFT RADIAL; ARTERIAL BLOOD GAS DELIVERY VENT; ARTERIAL BLOOD GAS VENT MODE AC
[2017-04-06 08:44] LABS: ALBUMIN SERUM 3.4 g/dL (3.5-5.0); CALCIUM SERUM 7.2 mg/dL (8.4-10.2); CREATININE SERUM 0.5 mg/dL (0.6-1.4); POTASSIUM 3.1 mmol/L (3.5-5.1)
[2017-04-06 08:52] LABS: BASOPHIL% 0.2 % (0-2.5); HEMATOCRIT 44.8 % (35.0-45.0); HEMOGLOBIN 14.1 gm/dL (12.0-16.0); LYMPHOCYTE# 3.2 X10e3 (1.0-3.5); LYMPHOCYTE% 16.9 % (17.0-45.0); MEAN CORPUSCULAR HEMOGLOBIN 22.6 PG (28-34); MEAN CORPUSCULAR HGB CONC 31.4 g/dL (30-36); MEAN PLATELET VOLUME 8.9 FL (6.5-11.5); MONOCYTE# 1.4 X10e3 (0-1.0); MONOCYTE% 7.3 % (3.0-12.0); NEUTROPHIL# 14.2 X10e3 (1.5-7.1); NEUTROPHIL% 75.6 % (40-75); PLATELET COUNT 207 X10e3 (140-420); RED BLOOD COUNT 6.22 X10e (3.90-5.30); RED CELL DISTRIBUTION WIDTH 14.8 % (11.0-15.5); WHITE BLOOD COUNT 18.7 X10e3 (4.0-10.5)
[2017-04-06 08:53] LABS: MEAN CELL VOLUME 71.9 FL (83-96)
[2017-04-06 08:55] LABS: DIFF IND NO
[2017-04-07 08:00] LABS: BASOPHIL% 0.2 % (0-2.5); EOSINOPHIL% 0.1 % (0.0-7.0); HEMOGLOBIN 11.5 gm/dL (12.0-16.0); LYMPHOCYTE# 2.6 X10e3 (1.0-3.5); LYMPHOCYTE% 17.2 % (17.0-45.0); MEAN CELL VOLUME 72.7 FL (83-96); MEAN CORPUSCULAR HEMOGLOBIN 22.7 PG (28-34); MEAN CORPUSCULAR HGB CONC 31.2 g/dL (30-36); MEAN PLATELET VOLUME 8.6 FL (6.5-11.5); MONOCYTE% 6.8 % (3.0-12.0); NEUTROPHIL# 11.6 X10e3 (1.5-7.1); NEUTROPHIL% 75.7 % (40-75); PLATELET COUNT 144 X10e3 (140-420); RED BLOOD COUNT 5.09 X10e (3.90-5.30); RED CELL DISTRIBUTION WIDTH 15.1 % (11.0-15.5); WHITE BLOOD COUNT 15.3 X10e3 (4.0-10.5)
[2017-04-07 08:01] LABS: DIFF IND NO
[2017-04-07 09:54] LABS: ALBUMIN SERUM 2.8 g/dL (3.5-5.0); BILIRUBIN,TOTAL 0.7 mg/dL (0.2-2.0); CALCIUM SERUM 7.7 mg/dL (8.4-10.2); CREATININE SERUM 0.6 mg/dL (0.6-1.4); GLOM FILT RATE Estimated 121.5 mL/min (>60); POTASSIUM 3.9 mmol/L (3.5-5.1); PROTEIN TOTAL SERUM 6.1 g/dL (6.0-8.3)
[2017-04-08 05:38] LABS: HEMATOCRIT 38.8 % (35.0-45.0); HEMOGLOBIN 12.1 gm/dL (12.0-16.0); MEAN CELL VOLUME 72.4 FL (83-96); MEAN CORPUSCULAR HEMOGLOBIN 22.6 PG (28-34); MEAN CORPUSCULAR HGB CONC 31.2 g/dL (30-36); MEAN PLATELET VOLUME 8.8 FL (6.5-11.5); RED BLOOD COUNT 5.36 X10e (3.90-5.30); RED CELL DISTRIBUTION WIDTH 15.3 % (11.0-15.5); WHITE BLOOD COUNT 14.3 X10e3 (4.0-10.5)
[2017-04-08 06:38] LABS: ALBUMIN SERUM 3.1 g/dL (3.5-5.0); BILIRUBIN,TOTAL 0.2 mg/dL (0.2-2.0); BUN/CREATININE RATIO 13.33; CALCIUM SERUM 8.6 mg/dL (8.4-10.2); CREATININE SERUM 0.6 mg/dL (0.6-1.4); GLOM FILT RATE Estimated 121.5 mL/min (>60); MAGNESIUM 2.5 mg/dL (1.6-3.0); POTASSIUM 3.2 mmol/L (3.5-5.1); PROTEIN TOTAL SERUM 6.9 g/dL (6.0-8.3)
[2017-04-08 10:10] LABS: ARTERIAL BLOOD GAS pH <6.775 (7.350-7.450)
[2017-04-10 00:38] LABS: NIL 0.01 IU/mL (()); QUANTIFERON NEGATIVE (Negative); TB AG-NIL 0.01 IU/mL (())
== END 2017-04-08 14:33 | disposition expired | DRG 208 ==
LOC: CED 23:54 → CEDOF 04-05 02:32 → CICCU3 04-05 04:02 → CEDOF 04-05 04:02 → CICCU3 04-05 06:33
PROVIDERS: Emergency Medicine; Internal Medicine Pulmonary Disease; Physician Assistant Medical
PROC: 5A1945Z Respiratory Ventilation, 24-96 Consecutive Hours (ICD-10-PCS; principal; 2017-04-05)
PROC: 0BH17EZ Insertion of Endotracheal Airway into Trachea, Via Natural or Artificial Opening (ICD-10-PCS; 2017-04-05)
DX: J96.01 Acute respiratory failure with hypoxia (principal); I46.9 Cardiac arrest, cause unspecified; J69.0 Pneumonitis due to inhalation of food and vomit; G93.1 Anoxic brain damage, not elsewhere classified; N17.9 Acute kidney failure, unspecified; G40.901 Epilepsy, unspecified, not intractable, with status epilepticus; F17.210 Nicotine dependence, cigarettes, uncomplicated; G47.33 Obstructive sleep apnea (adult) (pediatric); E66.01 Morbid (severe) obesity due to excess calories
CPT/HCPCS: 36415; 36600; 70450; 70551; 71010; 72125; 78606; 80048; 80053; 80076; 80307; 81003; 82553; 82803; 83735; 84132; 84484; 84703; 85025; 85027; 85610; 85730; 86480; 87040; 87070; 87205; 87340; 93005; 94002; 94003; 94760; 94761; 95816; 96374; 96375; 99291; A9539; C1887; C9113; C9254; G0480; J0171; J1165; J1650; J1953; J2060; J2543; J3475; J3490; Q2009